=== PATIENT | male | born 1955 | race Caucasian/White ===

== ENCOUNTER 2018-11-09 10:26 | Emergency (ER) | payer MEDICAID ==
[~2018-11-09] VITALS: Ht 172.7 cm; Wt 36.4 kg
[2018-11-09 10:46] VITALS: BP 186/72
--- NOTE | 2018-11-09 11:09 | NUR ---
pt states that he is not sleeping due to pain in his neck, wants medication
[2018-11-09] MEDS ORDERED: orphenadrine citrate 60mg/2ml inj. IM ONE (11:30)
[2018-11-09] MEDS ORDERED: ketorolac tromethamine 15mg/ml inj. IM ONE (11:30)
[2018-11-09] MEDS ORDERED: METH-360 PO (11:31)
[2018-11-09] MEDS ORDERED: NAPR-56 PO (11:31)
== END 2018-11-09 12:08 | disposition home or self-care (01) ==
LOC: ER 10:27
DX: M54.5 Low back pain (principal); G89.29 Other chronic pain; M43.6 Torticollis
CPT/HCPCS: 96372; 99283; J1885; J2360